=== PATIENT | female | born 2000 | race Hispanic/Latino ===

== ENCOUNTER 2023-01-28 20:51 | Emergency (ER) | payer OTHER ==
[2023-01-28] MEDS ORDERED: Ketorolac Tromethamine 30 MG/ML VIAL ONE (21:22)
[2023-01-28] MEDS ORDERED: Orphenadrine Citrate 60 MG/2 ML VIAL ONE (21:23)
[2023-01-28] MEDS ORDERED: Orphenadrine Citrate 60 MG/2 ML VIAL IM SCH (21:30)
== END 2023-01-28 21:45 | disposition home or self-care (01) ==
LOC: ERS 20:51
DX: M62.838 Other muscle spasm (principal)
CPT/HCPCS: 96372; 99283; J1885; J2360